=== PATIENT | male | born 1970 | race Caucasian/White ===

== ENCOUNTER 2023-02-18 12:40 | Emergency (ER) | payer OTHER ==
[~2023-02-18] VITALS: Ht 167.6 cm; Wt 59.0 kg
[2023-02-18] MEDS ORDERED: LIPITOR40 M1 PO (12:55)
[2023-02-18] MEDS ORDERED: ECOTRIN81 MG (12:55)
[2023-02-18] MEDS ORDERED: DILTIAZEM ER120 M2 (12:56)
[2023-02-18 17:43] LABS: HEMATOCRIT 40.8 % (39.0-48.0); HEMOGLOBIN 14.1 g/dL (13-16.00); MEAN CELL VOLUME 96.2 fL (80.0-100.00); MEAN CORPUSCULAR HEMOGLOBIN 33.4 pg (27.00-32.0); MEAN CORPUSCULAR HGB CONC 34.7 g/dl (32.0-36.0); PLATELET COUNT 207 K/uL (150-450); RED BLOOD COUNT 4.24 M/uL (4.00-6.00); RED CELL DISTRIBUTION WIDTH 13.7 % (11.5-14.5)
[2023-02-18 18:02] LABS: PARTIAL THROMBOPLASTIN TIME 27.1 SECONDS (22.0-34.0)
[2023-02-18 18:07] LABS: ALBUMIN 4.3 gm/dL (3.4-5.0); BILIRUBIN TOTAL 0.42 mg/dL (0.3-1.2); CALCIUM 9.3 mg/dL (8.5-10.1); CREATININE SERUM 1.03 mg/dL (0.70-1.30); GFR 76.13; POTASSIUM 3.69 mEq/L (3.5-5.1); TOTAL PROTEIN 8.3 gm/dL (6.4-8.2)
== END 2023-02-18 21:06 | disposition home or self-care (01) ==
LOC: ER 12:40
PROVIDERS: General Practice
DX: R31.9 Hematuria, unspecified (principal)

== ENCOUNTER 2024-03-14 09:54 | Emergency (ER) | payer OTHER ==
[~2024-03-14] VITALS: Ht 165.1 cm; Wt 59.0 kg
[~2024-03-14 09:54] MED LIST: DILTIAZEM ER120 M2; ECOTRIN81 MG; LIPITOR40 M1 PO
== END 2024-03-14 14:28 | disposition home or self-care (01) ==
LOC: ER 09:56
DX: S50.02XA Contusion of left elbow, initial encounter (principal); V92.09XA Drowning and submersion due to fall off unspecified watercraft, initial encounter; Y93.89 Activity, other specified; Y92.832 Beach as the place of occurrence of the external cause; I10 Essential (primary) hypertension